=== PATIENT | female | born 1995 | race Caucasian/White ===

== ENCOUNTER 2021-04-21 01:12 | Emergency (ER) | payer OTHER ==
[~2021-04-21] VITALS: Ht 157.5 cm; Wt 45.4 kg
--- NOTE | 2021-04-21 02:05 | NUR ---
Dr. Israel at bedside for MSE.
[2021-04-21] MEDS ORDERED: wellbutrin PO (02:12)
[2021-04-21] MEDS ORDERED: LAMO100T2 PO (02:12)
[2021-04-21] MEDS ORDERED: DIPH25CA83 PO (02:19)
[2021-04-21] MEDS ORDERED: FAMO40TA71 PO (02:19)
[2021-04-21] MEDS ORDERED: PRED20TA PO (02:19)
[2021-04-21] MEDS ORDERED: SULF1TAB48 PO (02:19)
--- NOTE | 2021-04-21 02:24 | NUR ---
Patient discharged to home in stable condition. Written and verbal after care instructions given. Patient verbalizes understanding of instructions. Stressed follow up or return to ER for worsening s/s. Patient out of ER with steady gait, no acute signs of distress, VSS, all belongings taken.
[2021-04-21 02:27] VITALS: BP 111/65
== END 2021-04-21 02:27 | disposition home or self-care (01) ==
LOC: ER 01:19
DX: L25.5 Unspecified contact dermatitis due to plants, except food (principal)
CPT/HCPCS: A4663